=== PATIENT | male | born 1980 | race Caucasian/White ===

== ENCOUNTER → 2020-07-27 | Outpatient (CLI) | payer OTHER ==
[~2020-07-27] MED LIST: APAP500 PO; MEDROL DOSPAK21 TAB PO; NEURONTIN 300300 M1 PO; PRILOSEC40 MG; WELLBUTRIN SR150 MG
== END ==
LOC: CAT 06:46
PROVIDERS: ATTEND Family Medicine
DX: Z13.6 Encounter for screening for cardiovascular disorders (principal); I25.10 Atherosclerotic heart disease of native coronary artery without angina pectoris; E78.00 Pure hypercholesterolemia, unspecified